=== PATIENT | male | born 2000 | race American Indian/Alaskan Native ===

== ENCOUNTER 2022-06-22 22:54 | Emergency (ER) | payer MEDICAID, OTHER ==
[2022-06-22] MEDS ORDERED: Diphtheria,Pertussis(Acell),Tetanus Vaccine 0.5 ML Syringe IM ONE (23:37)
[2022-06-23 01:34] VITALS: BP 131/81; PULSE 88
== END 2022-06-23 00:18 | disposition home or self-care (01) ==
LOC: DL.ED 22:54
DX: S01.511A Laceration without foreign body of lip, initial encounter (principal); Z23 Encounter for immunization; Y04.0XXA Assault by unarmed brawl or fight, initial encounter
CPT/HCPCS: 12011; 90471; 90715; 99282-25

== ENCOUNTER 2024-01-07 02:13 | Emergency (ER) | payer MEDICAID ==
[2024-01-07] MEDS: Lidocaine 1% 5 ML VIAL INJECT ONE (02:32)
[2024-01-07 02:36] VITALS: BP 128/98; PULSE 121
== END 2024-01-07 03:21 | disposition home or self-care (01) ==
LOC: DL.ED 02:13
DX: S02.2XXA Fracture of nasal bones, initial encounter for closed fracture (principal); S01.511A Laceration without foreign body of lip, initial encounter; Y04.8XXA Assault by other bodily force, initial encounter
CPT/HCPCS: 12011; 99282; 99284; J3490

== ENCOUNTER 2024-08-07 03:03 | Emergency (ER) | payer MEDICAID ==
[2024-08-07 03:13] VITALS: BP 133/97; PULSE 88
[2024-08-07] MEDS: MVI, Adult with Vitamin K 10 ML, Folic Acid 1 MG, Thiamine 100 MG in Lactated Ringers 1... IV ONE (03:21)
[2024-08-07 03:28] LABS: BASOPHILS PERCENT AUTO 1.1 % (0.0-1.0); EOSINOPHILS PERCENT AUTO 3.7 % (1.0-3.0); HEMATOCRIT 51.1 % (40.0-54.0); HEMOGLOBIN 17.7 g/dL (14.0-18.0); LYMPHOCYTES PERCENT AUTO 44.5 % (20.5-50.1); MEAN CORPUSCULAR HEMOGLOBIN 31.3 pg (27.0-34.0); MEAN CORPUSCULAR HGB CONC 34.6 g/dL (33.0-35.0); MEAN CORPUSCULAR VOLUME 90.3 fL (80-100); MONOCYTES PERCENT AUTO 13.5 % (2-8); NEUTROPHILS PERCENT AUTO 37.2 % (42.2-75.2); PLATELET COUNT,PLT 300 10^3/uL (150-450); RED BLOOD CELL COUNT 5.66 10^6/uL (4.6-6.2); WHITE BLOOD CELL COUNT,WBC 4.4 10^3/uL (5.0-10.0)
[2024-08-07 03:36] LABS: APPEARANCE,URINE CLEAR (CLEAR); BILIRUBIN,URINE NEGATIVE (NEGATIVE); GLUCOSE,URINE NEGATIVE (NEGATIVE); KETONES,URINE NEGATIVE (NEGATIVE); LEUKOCYTE ESTERASE,URINE NEGATIVE (NEGATIVE); NITRITE,URINE NEGATIVE (NEGATIVE); OCCULT BLOOD,URINE NEGATIVE (NEGATIVE); PROTEIN,URINE NEGATIVE (NEGATIVE)
[2024-08-07 03:40] LABS: AMPHETAMINES,URINE NEGATIVE (NEGATIVE); BARBITURATES,URINE NEGATIVE (NEGATIVE); BENZODIAZEPINE,URINE NEGATIVE (NEGATIVE); COLOR,URINE LIGHT YELLOW (YELLOW); MDMA (ECSTASY), URINE NEGATIVE (NEGATIVE); METHADONE,URINE NEGATIVE (NEGATIVE); METHAMPHETAMINES,URINE NEGATIVE (NEGATIVE); OPIATES,URINE NEGATIVE (NEGATIVE); OXYCODONE,URINE NEGATIVE (NEGATIVE); PHENCYCLIDINE,URINE NEGATIVE (NEGATIVE); TCA,URINE NEGATIVE (NEGATIVE)
[2024-08-07] MEDS: Ondansetron 4 MG/2 ML SDV IVPUSH ONE (03:46)
[2024-08-07] MEDS: Pantoprazole 40 MG Vial IVPUSH ONE (03:48)
[2024-08-07 03:54] LABS: A/G RATIO 1.3; ALBUMIN 4.4 g/dL (3.4-5.0); BILIRUBIN TOTAL 0.8 mg/dL (0.2-1.0); BUN/CREATININE RATIO 3.9 (No establ ref range); CALCIUM 8.8 mg/dL (8.5-10.1); CREATININE 0.76 mg/dL (0.70-1.30); EST CRCL DRUG DOSING (CG) 153.85 mL/min; PROTEIN TOTAL,TP 7.7 g/dL (6.4-8.2)
[2024-08-07 03:55] LABS: INR 1.1 (0.9-1.2); PROTHROMBIN TIME 11.2 SEC (9.0-12.0); PTT,PARTIAL THROMBOPLSTIN TIME 25.8 SEC (22.0-34.0)
[2024-08-07] MEDS: Potassium Chloride 10 MEQ Tab.ER PO ONE (06:32)
== END 2024-08-07 06:55 | disposition home or self-care (01) ==
LOC: DL.ED 03:03
DX: K29.21 Alcoholic gastritis with bleeding (principal); F10.229 Alcohol dependence with intoxication, unspecified; E87.6 Hypokalemia; F17.210 Nicotine dependence, cigarettes, uncomplicated; Y90.8 Blood alcohol level of 240 mg/100 ml or more
CPT/HCPCS: 36415; 80053; 80305-QW; 80307; 81003; 83690; 83735; 85025; 85610; 85730; 96365; 96375; 99284; 99284-25; A9270-GY; J2405; J2470; J3411; J3490; J7120